=== PATIENT | female | born 1955 | race Caucasian/White ===

== ENCOUNTER 2023-02-12 16:13 | Inpatient (IN) ==
[2023-02-12] MEDS ORDERED: Albuterol/Ipratropium NEB.SOL (2.5/0.5 MG) 3 ML NEB.SOLN INH ONE (20:11)
[2023-02-12] MEDS ORDERED: Albuterol 2.5mg/3 ml (0.083%) NEB.SOLN INH PRN (20:20)
[2023-02-12] MEDS ORDERED: Furosemide 40 mg/4 ml IV VIAL IV SLOW PU ONE (20:24)
[2023-02-12] MEDS ORDERED: Azelastine 0.1% Nasal (NF) 30 ML BTL BOTH NARES PRN (21:15)
[2023-02-12 21:57] LABS: ABS Lymphocytes 0.2 10^3/uL (1.0-4.8); ABS Monocytes 0.1 10^3/uL (0.0-0.9); ABS Neutrophils 5.1 10^3/uL (1.5-7.6); Hematocrit 31.1 % (35-45); Lymphocyte % 3.7 %; Mean Corpuscular Hemoglobin 26.5 pg (27-33); Mean Corpuscular Hgb Conc 32.1 g/dL (31-36); Mean Corpuscular Volume 82.6 fL (80-97); Mean Platelet Volume 8.2 fL (7.5-11.2); Nucleated Red Blood Cells % 0.1 /100 WBC (0.0-0.4); Platelet Count 253 10^3/uL (150-450); Red Blood Count 3.77 10^6/uL (3.63-4.92); Red Cell Distribution Width 15.4 % (12-17); White Blood Count 5.4 10^3/uL (3.8-11.8)
[2023-02-12] MEDS ORDERED: cefTRIAXone 1 gm/50 mL D5W 1 GM/50 ML BAG IV SCH (22:15)
[2023-02-12 22:23] LABS: Albumin 4.1 g/dL (3.2-5.2); Albumin/Globulin Ratio 1.5 (1-3); Calcium 9.8 mg/dL (8.6-10.3); Creatinine, Serum 1.58 mg/dL (0.51-0.95); Globulin 2.8 g/dL (2-4); Potassium 4.4 mmol/L (3.5-5.0); Total Bilirubin 0.4 mg/dL (0.2-1.0); Total Protein 6.9 g/dL (6.4-8.9); eGFR CKD-EPI 35.2 (>60)
[2023-02-12] MEDS ORDERED: LORazepam 2 mg VIAL 1 ml ONE (22:37)
[2023-02-12] MEDS ORDERED: Lorazepam PYXIS KEY ONE (22:37)
[2023-02-12] MEDS ORDERED: Lorazepam PYXIS KEY PRN (22:38)
[2023-02-12] MEDS ORDERED: LORazepam 2 mg VIAL 1 ml IV PUSH ONE (22:38)
[2023-02-12] MEDS: Albuterol/Ipratropium NEB.SOL (2.5/0.5 MG) 3 ML NEB.SOLN INH SCH (22:48)
[2023-02-12] MEDS ORDERED: Azithromycin 500 mg/250 ml NS 500 MG/250 ML BAG IVPB SCH (23:00)
[2023-02-12 23:21] LABS: High Sensitivity Troponin 1 Hr 203 pg/mL (<15)
[2023-02-12] MEDS ORDERED: Potassium Chlor 20 meq TAB.ER PO ONE (23:50)
[2023-02-13] MEDS: methylPREDNISolone SOD SUCC 40 mg/ml 1 ml VIAL IV SCH ×4 (00:42→21:32)
[2023-02-13] MEDS: Pantoprazole VIAL 40 MG VIAL IV SCH ×2 (00:49→08:56)
[2023-02-13] MEDS ORDERED: Iodixanol (CONTRAST) 320 MG/ML 100 ML SDV IV ONE (02:11)
[2023-02-13 04:14] LABS: ABS Lymphocytes 0.3 10^3/uL (1.0-4.8); ABS Monocytes 0.1 10^3/uL (0.0-0.9); ABS Neutrophils 5.4 10^3/uL (1.5-7.6); Hematocrit 29.2 % (35-45); Hemoglobin 9.4 g/dL (11.5-14.3); Lymphocyte % 4.4 %; Mean Corpuscular Hemoglobin 26.7 pg (27-33); Mean Corpuscular Hgb Conc 32.4 g/dL (31-36); Mean Corpuscular Volume 82.7 fL (80-97); Mean Platelet Volume 7.9 fL (7.5-11.2); Nucleated Red Blood Cells % 0.1 /100 WBC (0.0-0.4); Platelet Count 231 10^3/uL (150-450); Red Blood Count 3.53 10^6/uL (3.63-4.92); Red Cell Distribution Width 15.4 % (12-17); White Blood Count 5.7 10^3/uL (3.8-11.8)
[2023-02-13 04:35] LABS: High Sensitivity Troponin 3 Hr 210 pg/mL (<15)
[2023-02-13 04:46] LABS: Calcium 9.5 mg/dL (8.6-10.3); Creatinine, Serum 1.72 mg/dL (0.51-0.95); Potassium 4.4 mmol/L (3.5-5.0); eGFR CKD-EPI 31.8 (>60)
[2023-02-13] MEDS: Mometasone/Formoter 200/5 MDI INH SCH ×2 (08:23→19:29)
[2023-02-13] MEDS: Albuterol/Ipratropium NEB.SOL (2.5/0.5 MG) 3 ML NEB.SOLN INH SCH ×3 (08:23→19:29)
[2023-02-13] MEDS: Aspirin EC 81 mg TAB.EC (enteric coated) PO SCH (08:53)
[2023-02-13] MEDS: Nystatin TOP POWDER 15 GM BTL TOPICAL SCH ×2 (08:55→21:32)
[2023-02-13] MEDS ORDERED: Furosemide 40 mg/4 ml IV VIAL IV SLOW PU SCH (09:00)
[2023-02-13] MEDS ORDERED: cefTRIAXone 1 gm/50 mL D5W 1 GM/50 ML BAG IV SCH (09:00)
[2023-02-13 09:28] LABS: Ferritin 30.4 ng/mL (11-307)
[2023-02-13] MEDS ORDERED: Albuterol/Ipratropium NEB.SOL (2.5/0.5 MG) 3 ML NEB.SOLN INH PRN (11:56)
[2023-02-13] MEDS: cefTRIAXone 1 gm/50 mL D5W 1 GM/50 ML BAG IV SCH (12:37)
[2023-02-13] MEDS: Azithromycin 500 mg/250 ml NS 500 MG/250 ML BAG IVPB SCH ×2 (14:01→16:06)
[2023-02-13] MEDS ORDERED: Lidocaine 1% MPF 5 ML VIAL INJ ONE (14:34)
[2023-02-14] MEDS: Albuterol/Ipratropium NEB.SOL (2.5/0.5 MG) 3 ML NEB.SOLN INH SCH ×4 (01:20→18:57)
[2023-02-14 04:54] LABS: ABS Lymphocytes 0.2 10^3/uL (1.0-4.8); ABS Monocytes 0.2 10^3/uL (0.0-0.9); ABS Neutrophils 7.6 10^3/uL (1.5-7.6); ABS Nucleated RBC 0.01 10^3/ul; Hematocrit 26.4 % (35-45); Hemoglobin 8.5 g/dL (11.5-14.3); Lymphocyte % 2.8 %; Mean Corpuscular Hemoglobin 26.7 pg (27-33); Mean Corpuscular Hgb Conc 32.2 g/dL (31-36); Mean Corpuscular Volume 83.1 fL (80-97); Mean Platelet Volume 7.8 fL (7.5-11.2); Nucleated Red Blood Cells % 0.1 /100 WBC (0.0-0.4); Platelet Count 224 10^3/uL (150-450); Red Blood Count 3.18 10^6/uL (3.63-4.92); Red Cell Distribution Width 15.6 % (12-17)
[2023-02-14 05:19] LABS: Calcium 9.3 mg/dL (8.6-10.3); Creatinine, Serum 1.94 mg/dL (0.51-0.95); Magnesium 2.1 mg/dL (1.9-2.7); Potassium 4.2 mmol/L (3.5-5.0); eGFR CKD-EPI 27.5 (>60)
[2023-02-14] MEDS: methylPREDNISolone SOD SUCC 40 mg/ml 1 ml VIAL IV SCH ×3 (05:39→20:23)
[2023-02-14] MEDS: Saline FLUSH-CENTRAL 10 ML SYRINGE CENT\\PICC SCH ×2 (05:45→18:08)
[2023-02-14] MEDS: Mometasone/Formoter 200/5 MDI INH SCH ×2 (07:41→18:57)
[2023-02-14] MEDS ORDERED: Albuterol/Ipratropium NEB.SOL (2.5/0.5 MG) 3 ML NEB.SOLN INH PRN (08:35)
[2023-02-14] MEDS ORDERED: Albuterol 2.5mg/3 ml (0.083%) NEB.SOLN INH ONE (08:37)
[2023-02-14] MEDS: Aspirin EC 81 mg TAB.EC (enteric coated) PO SCH (08:48)
[2023-02-14] MEDS: Pantoprazole VIAL 40 MG VIAL IV SCH (08:49)
[2023-02-14] MEDS ORDERED: Furosemide 40 mg/4 ml IV VIAL IV ONE (10:00)
[2023-02-14] MEDS ORDERED: LORazepam 2 mg VIAL 1 ml IV PUSH PRN (10:06)
[2023-02-14] MEDS: Nystatin TOP POWDER 15 GM BTL TOPICAL SCH ×2 (11:29→20:22)
[2023-02-14] MEDS: cefTRIAXone 1 gm/50 mL D5W 1 GM/50 ML BAG IV SCH ×2 (11:38→12:52)
[2023-02-14] MEDS: Ferric Gluconate IV 125 MG in NS 0.9% 100 ml BAG 100 ML IVPB SCH (11:38)
[2023-02-14] MEDS: Azithromycin 500 mg/250 ml NS 500 MG/250 ML BAG IVPB SCH (13:31)
[2023-02-14 15:32] LABS: TSH Ultra Thyroid Stim Horm 2.04 mcIU/mL (0.34-5.60)
[2023-02-14 15:37] LABS: Free T4 0.96 ng/dL (0.61-1.12)
[2023-02-14] MEDS: Fluticasone NASAL SPRAY 50MCG 16 gm SPRAY BTL BOTH NARES SCH (18:08)
[2023-02-15] MEDS: Albuterol/Ipratropium NEB.SOL (2.5/0.5 MG) 3 ML NEB.SOLN INH SCH ×4 (00:57→19:04)
[2023-02-15 05:25] LABS: ABS Lymphocytes 0.2 10^3/uL (1.0-4.8); ABS Monocytes 0.2 10^3/uL (0.0-0.9); ABS Neutrophils 8.3 10^3/uL (1.5-7.6); ABS Nucleated RBC 0.01 10^3/ul; Hematocrit 26.2 % (35-45); Hemoglobin 8.6 g/dL (11.5-14.3); Lymphocyte % 2.8 %; Mean Corpuscular Hemoglobin 27.3 pg (27-33); Mean Corpuscular Hgb Conc 32.9 g/dL (31-36); Mean Corpuscular Volume 82.9 fL (80-97); Mean Platelet Volume 8.2 fL (7.5-11.2); Nucleated Red Blood Cells % 0.1 /100 WBC (0.0-0.4); Platelet Count 223 10^3/uL (150-450); Red Blood Count 3.16 10^6/uL (3.63-4.92); Red Cell Distribution Width 15.3 % (12-17); White Blood Count 8.7 10^3/uL (3.8-11.8)
[2023-02-15 05:50] LABS: Calcium 9.2 mg/dL (8.6-10.3); Creatinine, Serum 2.29 mg/dL (0.51-0.95); Magnesium 2.2 mg/dL (1.9-2.7); Potassium 4.4 mmol/L (3.5-5.0); eGFR CKD-EPI 22.6 (>60)
[2023-02-15] MEDS: methylPREDNISolone SOD SUCC 40 mg/ml 1 ml VIAL IV SCH ×3 (05:51→22:01)
[2023-02-15] MEDS: Saline FLUSH-CENTRAL 10 ML SYRINGE CENT\\PICC SCH ×2 (05:54→20:34)
[2023-02-15] MEDS: Mometasone/Formoter 200/5 MDI INH SCH ×2 (07:57→19:03)
[2023-02-15] MEDS: Ferric Gluconate IV 125 MG in NS 0.9% 100 ml BAG 100 ML IVPB SCH (10:58)
[2023-02-15] MEDS: Pantoprazole VIAL 40 MG VIAL IV SCH (11:04)
[2023-02-15] MEDS: Nystatin TOP POWDER 15 GM BTL TOPICAL SCH ×2 (11:05→20:35)
[2023-02-15] MEDS: Aspirin EC 81 mg TAB.EC (enteric coated) PO SCH (11:05)
[2023-02-15] MEDS: Fluticasone NASAL SPRAY 50MCG 16 gm SPRAY BTL BOTH NARES SCH (11:09)
[2023-02-15] MEDS: cefTRIAXone 1 gm/50 mL D5W 1 GM/50 ML BAG IV SCH (12:30)
[2023-02-15 13:10] LABS: Urine Appearance Cloudy; Urine Bilirubin Negative (Negative); Urine Blood 3+ (Negative); Urine Color Yellow; Urine Glucose Negative (Negative); Urine Ketones Negative (Negative); Urine Nitrite Negative (Negative); Urine Protein 1+(30 mg/dL) (Negative); Urine Specific Gravity 1.018 (1.002-1.030); Urine Urobilinogen Negative (Negative)
[2023-02-15 13:18] LABS: Urine Bacteria Absent (Absent); Urine Red Blood Cell 3+(>10/hpf) (Absent); Urine Squamous Epithelial Cell Present (Absent); Urine White Blood Cell 1+(6-10/hpf) (Absent)
[2023-02-15] MEDS: Azithromycin 500 mg/250 ml NS 500 MG/250 ML BAG IVPB SCH (13:52)
[2023-02-15 15:55] LABS: Urine Osmo 576 mOsm/kg (150-1150)
[2023-02-15 16:04] LABS: UR Microalbumin (mg/L) 56.3 mg/L; Urine Creatinine 124.79 mg/dL; Urine Microalbumin/Creatinine 45.1 mcg/mg (<31)
[2023-02-16] MEDS: Albuterol/Ipratropium NEB.SOL (2.5/0.5 MG) 3 ML NEB.SOLN INH SCH ×4 (00:52→19:36)
[2023-02-16] MEDS: methylPREDNISolone SOD SUCC 40 mg/ml 1 ml VIAL IV SCH ×3 (05:26→20:09)
[2023-02-16] MEDS: Saline FLUSH-CENTRAL 10 ML SYRINGE CENT\\PICC SCH ×2 (05:42→16:04)
[2023-02-16 05:50] LABS: ABS Lymphocytes 0.2 10^3/uL (1.0-4.8); ABS Monocytes 0.2 10^3/uL (0.0-0.9); ABS Neutrophils 7.8 10^3/uL (1.5-7.6); ABS Nucleated RBC 0.01 10^3/ul; Eosinophil % 0.1 %; Hemoglobin 8.8 g/dL (11.5-14.3); Lymphocyte % 2.6 %; Mean Corpuscular Hemoglobin 27.3 pg (27-33); Mean Corpuscular Hgb Conc 32.4 g/dL (31-36); Mean Platelet Volume 8.5 fL (7.5-11.2); Nucleated Red Blood Cells % 0.1 /100 WBC (0.0-0.4); Platelet Count 214 10^3/uL (150-450); Red Blood Count 3.22 10^6/uL (3.63-4.92); Red Cell Distribution Width 15.4 % (12-17); White Blood Count 8.3 10^3/uL (3.8-11.8)
[2023-02-16 06:30] LABS: Calcium 8.9 mg/dL (8.6-10.3); Creatinine, Serum 1.86 mg/dL (0.51-0.95); Magnesium 2.2 mg/dL (1.9-2.7)
[2023-02-16] MEDS: Mometasone/Formoter 200/5 MDI INH SCH ×2 (06:54→19:40)
[2023-02-16] MEDS: Ferric Gluconate IV 125 MG in NS 0.9% 100 ml BAG 100 ML IVPB SCH (09:20)
[2023-02-16] MEDS: Aspirin EC 81 mg TAB.EC (enteric coated) PO SCH (09:21)
[2023-02-16] MEDS: Fluticasone NASAL SPRAY 50MCG 16 gm SPRAY BTL BOTH NARES SCH (09:24)
[2023-02-16] MEDS: Nystatin TOP POWDER 15 GM BTL TOPICAL SCH ×2 (09:24→20:09)
[2023-02-16] MEDS: cefTRIAXone 1 gm/50 mL D5W 1 GM/50 ML BAG IV SCH (11:50)
[2023-02-16] MEDS: Azithromycin 500 mg/250 ml NS 500 MG/250 ML BAG IVPB SCH (11:50)
[2023-02-17] MEDS: Albuterol/Ipratropium NEB.SOL (2.5/0.5 MG) 3 ML NEB.SOLN INH SCH ×4 (00:06→19:21)
[2023-02-17] MEDS: methylPREDNISolone SOD SUCC 40 mg/ml 1 ml VIAL IV SCH (05:24)
[2023-02-17] MEDS: Saline FLUSH-CENTRAL 10 ML SYRINGE CENT\\PICC SCH ×2 (05:24→17:46)
[2023-02-17 06:11] LABS: ABS Lymphocytes 0.3 10^3/uL (1.0-4.8); ABS Monocytes 0.2 10^3/uL (0.0-0.9); ABS Neutrophils 6.7 10^3/uL (1.5-7.6); Hemoglobin 9.6 g/dL (11.5-14.3); Lymphocyte % 4.5 %; Mean Corpuscular Volume 84.8 fL (80-97); Mean Platelet Volume 8.6 fL (7.5-11.2); Platelet Count 224 10^3/uL (150-450); Red Blood Count 3.41 10^6/uL (3.63-4.92); Red Cell Distribution Width 15.3 % (12-17); White Blood Count 7.2 10^3/uL (3.8-11.8)
[2023-02-17 06:29] LABS: Calcium 9.1 mg/dL (8.6-10.3); Creatinine, Serum 1.68 mg/dL (0.51-0.95); Magnesium 2.3 mg/dL (1.9-2.7); Potassium 4.8 mmol/L (3.5-5.0); eGFR CKD-EPI 32.7 (>60)
[2023-02-17] MEDS: Mometasone/Formoter 200/5 MDI INH SCH ×2 (07:00→19:24)
[2023-02-17] MEDS: Ferric Gluconate IV 125 MG in NS 0.9% 100 ml BAG 100 ML IVPB SCH (10:27)
[2023-02-17] MEDS: Aspirin EC 81 mg TAB.EC (enteric coated) PO SCH (10:27)
[2023-02-17] MEDS: Fluticasone NASAL SPRAY 50MCG 16 gm SPRAY BTL BOTH NARES SCH (12:33)
[2023-02-17] MEDS: Nystatin TOP POWDER 15 GM BTL TOPICAL SCH ×2 (17:46→20:45)
[2023-02-18] MEDS: Albuterol/Ipratropium NEB.SOL (2.5/0.5 MG) 3 ML NEB.SOLN INH SCH ×4 (01:18→18:26)
[2023-02-18 05:29] LABS: Calcium 8.7 mg/dL (8.6-10.3); Creatinine, Serum 1.6 mg/dL (0.51-0.95); Magnesium 2.3 mg/dL (1.9-2.7); Potassium 4.3 mmol/L (3.5-5.0); eGFR CKD-EPI 34.7 (>60)
[2023-02-18] MEDS: Saline FLUSH-CENTRAL 10 ML SYRINGE CENT\\PICC SCH ×2 (05:29→18:22)
[2023-02-18] MEDS: Mometasone/Formoter 200/5 MDI INH SCH ×2 (07:03→18:20)
[2023-02-18] MEDS: Aspirin EC 81 mg TAB.EC (enteric coated) PO SCH (10:25)
[2023-02-18] MEDS: Ferric Gluconate IV 125 MG in NS 0.9% 100 ml BAG 100 ML IVPB SCH (10:26)
[2023-02-18] MEDS: Fluticasone NASAL SPRAY 50MCG 16 gm SPRAY BTL BOTH NARES SCH (10:41)
[2023-02-18] MEDS: Nystatin TOP POWDER 15 GM BTL TOPICAL SCH ×2 (10:42→20:42)
[2023-02-19] MEDS: Albuterol/Ipratropium NEB.SOL (2.5/0.5 MG) 3 ML NEB.SOLN INH SCH ×4 (00:13→20:18)
[2023-02-19] MEDS: Saline FLUSH-CENTRAL 10 ML SYRINGE CENT\\PICC SCH ×2 (06:15→17:59)
[2023-02-19] MEDS: Mometasone/Formoter 200/5 MDI INH SCH ×2 (07:27→20:18)
[2023-02-19] MEDS: Nystatin TOP POWDER 15 GM BTL TOPICAL SCH ×2 (07:49→20:55)
[2023-02-19] MEDS: Aspirin EC 81 mg TAB.EC (enteric coated) PO SCH (07:50)
[2023-02-19] MEDS: Fluticasone NASAL SPRAY 50MCG 16 gm SPRAY BTL BOTH NARES SCH (07:51)
[2023-02-19] MEDS: Ferric Gluconate IV 125 MG in NS 0.9% 100 ml BAG 100 ML IVPB SCH (08:06)
[2023-02-20] MEDS: Saline FLUSH-CENTRAL 10 ML SYRINGE CENT\\PICC SCH ×2 (05:27→18:26)
[2023-02-20] MEDS: Mometasone/Formoter 200/5 MDI INH SCH ×2 (06:52→19:12)
[2023-02-20] MEDS: Albuterol/Ipratropium NEB.SOL (2.5/0.5 MG) 3 ML NEB.SOLN INH SCH ×3 (06:52→19:11)
[2023-02-20] MEDS: Aspirin EC 81 mg TAB.EC (enteric coated) PO SCH (08:51)
[2023-02-20] MEDS: Fluticasone NASAL SPRAY 50MCG 16 gm SPRAY BTL BOTH NARES SCH (08:53)
[2023-02-20] MEDS: Ferric Gluconate IV 125 MG in NS 0.9% 100 ml BAG 100 ML IVPB SCH (08:57)
[2023-02-20] MEDS: Nystatin TOP POWDER 15 GM BTL TOPICAL SCH ×2 (09:00→19:57)
[2023-02-21] MEDS: Saline FLUSH-CENTRAL 10 ML SYRINGE CENT\\PICC SCH ×2 (05:51→17:09)
[2023-02-21] MEDS: Mometasone/Formoter 200/5 MDI INH SCH ×2 (07:08→19:10)
[2023-02-21] MEDS: Albuterol/Ipratropium NEB.SOL (2.5/0.5 MG) 3 ML NEB.SOLN INH SCH ×3 (07:08→19:09)
[2023-02-21] MEDS: Fluticasone NASAL SPRAY 50MCG 16 gm SPRAY BTL BOTH NARES SCH (09:37)
[2023-02-21] MEDS: Aspirin EC 81 mg TAB.EC (enteric coated) PO SCH (09:47)
[2023-02-21] MEDS: Nystatin TOP POWDER 15 GM BTL TOPICAL SCH ×2 (09:52→20:30)
[2023-02-21] MEDS: Ferric Gluconate IV 125 MG in NS 0.9% 100 ml BAG 100 ML IVPB SCH (09:52)
[2023-02-21 17:33] LABS: Rapid COVID-19 Molecular Undetected (Undetected)
[2023-02-22] MEDS: Saline FLUSH-CENTRAL 10 ML SYRINGE CENT\\PICC SCH (05:45)
[2023-02-22 06:11] VITALS: BP 149/57
[2023-02-22] MEDS: Mometasone/Formoter 200/5 MDI INH SCH (08:06)
[2023-02-22] MEDS: Albuterol/Ipratropium NEB.SOL (2.5/0.5 MG) 3 ML NEB.SOLN INH SCH ×2 (08:07→13:43)
[2023-02-22] MEDS: Nystatin TOP POWDER 15 GM BTL TOPICAL SCH (10:09)
[2023-02-22] MEDS: Aspirin EC 81 mg TAB.EC (enteric coated) PO SCH (10:09)
[2023-02-22] MEDS: Fluticasone NASAL SPRAY 50MCG 16 gm SPRAY BTL BOTH NARES SCH (10:10)
== END 2023-02-22 13:00 | disposition home or self-care (01) | DRG 189 ==
LOC: ED 16:13 → SUATTDRO 20:44 → EDHOLD 20:44 → ICU 21:55 → MEDTELE 02-16 14:09
PROVIDERS: ADMIT Internal Medicine; ATTEND Student in an Organized Health Care Education/Training Program

== ENCOUNTER 2023-12-31 20:04 | Inpatient (IN) ==
[2023-12-31] MEDS ORDERED: Senna TAB 8.6 mg TAB PO PRN (21:18)
[2023-12-31] MEDS ORDERED: Ondansetron 4 mg VIAL 2 MG/ML 2 ml VIAL IV PRN (21:18)
[2023-12-31] MEDS: Levalbuterol 1.25MG/0.5ML NEB.SOL INH ONE (21:42)
[2023-12-31 23:31] LABS: Urine Appearance Clear; Urine Bilirubin Negative (Negative); Urine Blood Negative (Negative); Urine Color Colorless; Urine Glucose Negative (Negative); Urine Ketones Negative (Negative); Urine Nitrite Negative (Negative); Urine Protein Negative (Negative); Urine Specific Gravity 1.007 (1.002-1.030); Urine Urobilinogen Negative (Negative)
[2024-01-01] MEDS: Furosemide 40 mg/4 ml IV VIAL IV SLOW PU ONE (00:48)
[2024-01-01 00:50] LABS: High Sensitivity Troponin 1 Hr 2647 pg/mL (<15)
[2024-01-01] MEDS ORDERED: Heparin 5000 UNITS/ML 1 mL VIAL IV SCH (01:00)
[2024-01-01] MEDS: Heparin DRIP 25,000 UNITS BAG 25,000 UNITS/250 ML BAG IV SCH (01:44)
[2024-01-01] MEDS ORDERED: Bivalirudin 250 MG in NS 0.9% 50 ML Total BAG IV SCH (01:55)
[2024-01-01] MEDS: Iodixanol (CONTRAST) 320 MG/ML 100 ML SDV IV ONE (02:33)
[2024-01-01] MEDS: Levalbuterol 1.25MG/0.5ML NEB.SOL INH PRN (03:25)
[2024-01-01] MEDS: Bivalirudin 250 MG in NS 0.9% 50 ML Total BAG IV SCH (03:50)
[2024-01-01 03:55] LABS: Activated Partial Thrombo Time 32.3 seconds (26.0-38.0); INR 0.94 (0.83-1.13)
[2024-01-01 03:58] LABS: ABS Basophils 0.1 10^3/uL (0.0-0.1); ABS Eosinophils 0.3 10^3/uL (0.0-0.5); ABS Lymphocytes 0.8 10^3/uL (1.0-4.8); ABS Monocytes 0.6 10^3/uL (0.0-0.9); ABS Neutrophils 5.9 10^3/uL (1.5-7.6); ABS Nucleated RBC 0.01 10^3/ul; Eosinophil % 3.8 %; Hematocrit 33.8 % (35-45); Hemoglobin 11.5 g/dL (11.5-14.3); Lymphocyte % 10.8 %; Mean Corpuscular Hemoglobin 30.2 pg (27-33); Mean Corpuscular Hgb Conc 34.1 g/dL (31-36); Mean Corpuscular Volume 88.7 fL (80-97); Mean Platelet Volume 8.5 fL (7.5-11.2); Nucleated Red Blood Cells % 0.1 %/100WBC (0.0-0.8); Platelet Count 230 10^3/uL (150-450); Red Blood Count 3.81 10^6/uL (3.63-4.92); Red Cell Distribution Width 13.3 % (12-17); White Blood Count 7.7 10^3/uL (3.8-11.8)
[2024-01-01 05:15] LABS: Albumin 4.3 g/dL (3.2-5.2); Albumin/Globulin Ratio 1.5 (1-3); Calcium 9.6 mg/dL (8.6-10.3); Creatinine, Serum 2.18 mg/dL (0.51-0.95); Globulin 2.8 g/dL (2-4); Magnesium 1.8 mg/dL (1.9-2.7); Potassium 4.1 mmol/L (3.5-5.0); Total Bilirubin 0.5 mg/dL (0.2-1.0); Total Protein 7.1 g/dL (6.4-8.9); eGFR CKD-EPI 23.9 (>60)
[2024-01-01] MEDS: Magnesium Sulfate 2 gm BAG 2 GM/50 ML BAG IVPB ONE (07:57)
[2024-01-01] MEDS ORDERED: Sulfur Hexaflouride MICROSPHR 25 MG VIAL ONE (08:44)
[2024-01-01] MEDS: Cholecalciferol (VIT D3) 1,000 unit TAB PO SCH (09:36)
[2024-01-01] MEDS: NF: (Azelastine 137 mcg (0.1 %) Aerosol,Spray) INTRANASAL SCH (09:48)
[2024-01-01] MEDS: NF: BUDESONIDE/GLYCOPYR/FORMOTEROL MDI (NF) INH SCH (09:48)
[2024-01-01] MEDS: VARENICLINE 1 MG PO SCH (09:49)
[2024-01-01 10:13] LABS: Activated Partial Thrombo Time 84.8 seconds (26.0-38.0); INR 1.43 (0.83-1.13)
[2024-01-01 11:00] LABS: High Sensitivity Troponin 3 Hr 3112 pg/mL (<15)
[2024-01-01] MEDS ORDERED: Albuterol HFA INHALER 8 gm MDI INH PRN (13:22)
[2024-01-01 13:30] LABS: Activated Partial Thrombo Time 57.2 seconds (26.0-38.0); INR 1.35 (0.83-1.13)
[2024-01-01] MEDS: SPIRIVA Respimat (tiotropium) 2.5 mcg/inh Inhaler INH SCH (13:36)
[2024-01-01] MEDS: Mometasone/Formoter 200/5 MDI INH SCH (13:36)
[2024-01-01] MEDS ORDERED: Albuterol/Ipratropium NEB.SOL (2.5/0.5 MG) 3 ML NEB.SOLN INH SCH ×2 (14:00→15:00)
[2024-01-01] MEDS: Albuterol 2.5mg/3 ml (0.083%) NEB.SOLN INH PRN (14:02)
[2024-01-01] MEDS: Albuterol 2.5mg/3 ml (0.083%) NEB.SOLN INH ONE (14:02)
[2024-01-01 14:49] LABS: High Sensitivity Troponin 1 Hr 1938 pg/mL (<15)
[2024-01-01 15:03] LABS: HDL Cholesterol 71.6 mg/dL
[2024-01-01] MEDS: Calcium (OSCAL) 500 mg TAB PO SCH (15:58)
[2024-01-01] MEDS: COVID VAC 23-24(12+)(Moderna) SYR 0.5 ML IM ONE (16:01)
[2024-01-01 16:30] LABS: Activated Partial Thrombo Time 82.8 seconds (26.0-38.0); INR 1.38 (0.83-1.13)
[2024-01-01] MEDS: Albuterol 2.5mg/3 ml (0.083%) NEB.SOLN INH SCH (19:03)
[2024-01-02 05:45] LABS: Activated Partial Thrombo Time 77.8 seconds (26.0-38.0); INR 1.39 (0.83-1.13)
[2024-01-02 05:56] LABS: Calcium 9.4 mg/dL (8.6-10.3); Creatinine, Serum 1.94 mg/dL (0.51-0.95); Magnesium 2.5 mg/dL (1.9-2.7); Potassium 4.1 mmol/L (3.5-5.0); eGFR CKD-EPI 27.5 (>60)
[2024-01-02 06:01] LABS: ABS Basophils 0.1 10^3/uL (0.0-0.1); ABS Eosinophils 0.3 10^3/uL (0.0-0.5); ABS Lymphocytes 0.9 10^3/uL (1.0-4.8); ABS Monocytes 0.4 10^3/uL (0.0-0.9); ABS Neutrophils 3.7 10^3/uL (1.5-7.6); Eosinophil % 5.3 %; Hematocrit 31.6 % (35-45); Hemoglobin 10.5 g/dL (11.5-14.3); Lymphocyte % 16.6 %; Mean Corpuscular Hemoglobin 29.7 pg (27-33); Mean Corpuscular Hgb Conc 33.2 g/dL (31-36); Mean Corpuscular Volume 89.4 fL (80-97); Mean Platelet Volume 8.9 fL (7.5-11.2); Nucleated Red Blood Cells % 0.1 %/100WBC (0.0-0.8); Platelet Count 175 10^3/uL (150-450); Red Blood Count 3.53 10^6/uL (3.63-4.92); White Blood Count 5.4 10^3/uL (3.8-11.8)
[2024-01-02] MEDS: NS 0.9% 1000 ml BAG 1,000 ML IV SCH ×2 (06:23→23:40)
[2024-01-02] MEDS: Midazolam 10 mg/10 ml VIAL 1 mg/ml 10 ml VIAL (10 mg) IV SLOW PU ONE (19:22)
[2024-01-02] MEDS: fentaNYL 100 mcg/2 ml 50 MCG/ML VIAL IV SLOW PU ONE (19:22)
[2024-01-03 05:22] LABS: ABS Eosinophils 0.2 10^3/uL (0.0-0.5); ABS Lymphocytes 0.5 10^3/uL (1.0-4.8); ABS Monocytes 0.3 10^3/uL (0.0-0.9); ABS Neutrophils 2.6 10^3/uL (1.5-7.6); Eosinophil % 4.6 %; Hematocrit 27.1 % (35-45); Hemoglobin 9.2 g/dL (11.5-14.3); Lymphocyte % 13.7 %; Mean Corpuscular Hemoglobin 30.2 pg (27-33); Mean Corpuscular Volume 88.7 fL (80-97); Mean Platelet Volume 8.5 fL (7.5-11.2); Platelet Count 152 10^3/uL (150-450); Red Blood Count 3.06 10^6/uL (3.63-4.92); Red Cell Distribution Width 13.2 % (12-17); White Blood Count 3.7 10^3/uL (3.8-11.8)
[2024-01-03 05:56] LABS: Calcium 8.6 mg/dL (8.6-10.3); Creatinine, Serum 2.06 mg/dL (0.51-0.95); Magnesium 2.3 mg/dL (1.9-2.7); Potassium 4.1 mmol/L (3.5-5.0); eGFR CKD-EPI 25.6 (>60)
[2024-01-03 10:22] LABS: Ferritin 82.8 ng/mL (11-307)
[2024-01-03] MEDS: Iron Sucrose 200 MG in NS 0.9% 100 ml BAG 100 ML IVPB SCH (12:19)
[2024-01-03] MEDS: Fluticasone NASAL SPRAY 50MCG 16 gm SPRAY BTL BOTH NARES SCH (18:14)
[2024-01-04 05:36] LABS: ABS Lymphocytes 0.3 10^3/uL (1.0-4.8); ABS Monocytes 0.2 10^3/uL (0.0-0.9); ABS Neutrophils 3.7 10^3/uL (1.5-7.6); Eosinophil % 0.1 %; Hematocrit 29.2 % (35-45); Hemoglobin 9.8 g/dL (11.5-14.3); Lymphocyte % 7.5 %; Mean Corpuscular Hgb Conc 33.5 g/dL (31-36); Mean Corpuscular Volume 89.4 fL (80-97); Mean Platelet Volume 9.1 fL (7.5-11.2); Platelet Count 164 10^3/uL (150-450); Red Blood Count 3.27 10^6/uL (3.63-4.92); Red Cell Distribution Width 13.4 % (12-17); White Blood Count 4.3 10^3/uL (3.8-11.8)
[2024-01-04 06:21] LABS: Calcium 8.9 mg/dL (8.6-10.3); Creatinine, Serum 1.77 mg/dL (0.51-0.95); Magnesium 2.4 mg/dL (1.9-2.7); Potassium 4.3 mmol/L (3.5-5.0); eGFR CKD-EPI 30.7 (>60)
[2024-01-04] MEDS: Polyethylene Glycol 3350 17 GM PACKET PO PRN (14:53)
[2024-01-05 05:27] LABS: ABS Lymphocytes 0.5 10^3/uL (1.0-4.8); ABS Monocytes 0.3 10^3/uL (0.0-0.9); ABS Nucleated RBC 0.01 10^3/ul; Hematocrit 29.2 % (35-45); Hemoglobin 9.8 g/dL (11.5-14.3); Lymphocyte % 8.8 %; Mean Corpuscular Hemoglobin 29.9 pg (27-33); Mean Corpuscular Hgb Conc 33.4 g/dL (31-36); Mean Corpuscular Volume 89.3 fL (80-97); Mean Platelet Volume 9.2 fL (7.5-11.2); Nucleated Red Blood Cells % 0.2 %/100WBC (0.0-0.8); Platelet Count 182 10^3/uL (150-450); Red Blood Count 3.27 10^6/uL (3.63-4.92); Red Cell Distribution Width 13.3 % (12-17); White Blood Count 5.9 10^3/uL (3.8-11.8)
[2024-01-05 05:59] LABS: Creatinine, Serum 1.7 mg/dL (0.51-0.95); Magnesium 2.3 mg/dL (1.9-2.7); Potassium 4.5 mmol/L (3.5-5.0); eGFR CKD-EPI 32.3 (>60)
[2024-01-06 05:22] LABS: ABS Basophils 0.1 10^3/uL (0.0-0.1); ABS Lymphocytes 0.6 10^3/uL (1.0-4.8); ABS Monocytes 0.4 10^3/uL (0.0-0.9); ABS Neutrophils 5.2 10^3/uL (1.5-7.6); ABS Nucleated RBC 0.01 10^3/ul; Eosinophil % 0.1 %; Hematocrit 29.8 % (35-45); Hemoglobin 10.1 g/dL (11.5-14.3); Lymphocyte % 9.2 %; Mean Corpuscular Hemoglobin 30.3 pg (27-33); Mean Corpuscular Volume 89.2 fL (80-97); Mean Platelet Volume 9.2 fL (7.5-11.2); Nucleated Red Blood Cells % 0.2 %/100WBC (0.0-0.8); Platelet Count 197 10^3/uL (150-450); Red Blood Count 3.34 10^6/uL (3.63-4.92); Red Cell Distribution Width 13.4 % (12-17); White Blood Count 6.2 10^3/uL (3.8-11.8)
[2024-01-06 06:14] LABS: Creatinine, Serum 1.75 mg/dL (0.51-0.95); Magnesium 2.3 mg/dL (1.9-2.7); Potassium 4.3 mmol/L (3.5-5.0); eGFR CKD-EPI 31.2 (>60)
[2024-01-06] MEDS ORDERED: VERAPAMIL 2.5 MG/ML 2 ML VIAL ** 5 mg/2 ml ONE (11:27)
[2024-01-06] MEDS ORDERED: Iodixanol 320 (CONTRAST) 100 ML SDV ONE (11:28)
[2024-01-06] MEDS ORDERED: nitroGLYCERIN DRIP 25,000 MCG/250 ML BTL ONE (11:28)
[2024-01-06] MEDS ORDERED: Lidocaine 1% MPF 5 ML VIAL ONE (11:28)
[2024-01-06] MEDS ORDERED: Midazolam 5 mg/5 ml VIAL 1 mg/ml 5 ml VIAL (5 mg) ONE (11:31)
[2024-01-06] MEDS ORDERED: fentaNYL 100 mcg/2 ml 50 MCG/ML VIAL ONE (11:31)
[2024-01-06] MEDS: Midazolam 10 mg/10 ml VIAL 1 mg/ml 10 ml VIAL (10 mg) IV SLOW PU ONE (11:38)
[2024-01-06] MEDS: fentaNYL 100 mcg/2 ml 50 MCG/ML VIAL IV SLOW PU ONE (11:38)
[2024-01-06] MEDS ORDERED: Atropine 0.1 MG/ML 10 ml SYR (1 mg) ONE (11:49)
[2024-01-06] MEDS: NS 0.9% 1000 ml BAG 1,000 ML IV SCH (15:10)
[2024-01-06] MEDS: Albuterol 2.5mg/3 ml (0.083%) NEB.SOLN INH SCH (18:55)
[2024-01-07 04:56] LABS: Hematocrit 30.2 % (35-45); Hemoglobin 10.2 g/dL (11.5-14.3); Mean Corpuscular Hemoglobin 30.2 pg (27-33); Mean Corpuscular Hgb Conc 33.9 g/dL (31-36); Mean Corpuscular Volume 89.2 fL (80-97); Mean Platelet Volume 8.8 fL (7.5-11.2); Platelet Count 186 10^3/uL (150-450); Red Blood Count 3.39 10^6/uL (3.63-4.92); Red Cell Distribution Width 13.2 % (12-17); White Blood Count 5.9 10^3/uL (3.8-11.8)
[2024-01-07 05:11] LABS: Calcium 8.9 mg/dL (8.6-10.3); Creatinine, Serum 1.75 mg/dL (0.51-0.95); Magnesium 2.3 mg/dL (1.9-2.7); Potassium 4.3 mmol/L (3.5-5.0); eGFR CKD-EPI 31.2 (>60)
[2024-01-07] MEDS: Albuterol 2.5mg/3 ml (0.083%) NEB.SOLN INH SCH (20:54)
[2024-01-08 06:16] LABS: Calcium 8.6 mg/dL (8.6-10.3); Creatinine, Serum 1.64 mg/dL (0.51-0.95); eGFR CKD-EPI 33.7 (>60)
[2024-01-08] MEDS ORDERED: Albuterol 2.5mg/3 ml (0.083%) NEB.SOLN INH PRN (11:54)
[2024-01-08 13:36] VITALS: BP 143/54
== END 2024-01-08 15:20 | disposition home or self-care (01) | DRG 190 ==
LOC: EDHOLD 20:04 → ED 20:04 → SUATTDRO 21:18 → ICU 01-01 02:34 → SUATTDRO 01-01 13:21 → MEDTELE 01-07 15:59
PROVIDERS: ADMIT Internal Medicine; ATTEND Internal Medicine

== ENCOUNTER 2024-09-15 17:24 | Inpatient (IN) ==
[~2024-09-15 17:24] MED LIST: Midazolam 10 mg/10 ml VIAL 1 mg/ml 10 ml VIAL (10 mg) ONE
[2024-09-15] MEDS: Propofol 10 mg/ml 100 ML BTL 1,000 MG/100 ML BTL IV SCH (18:20)
[2024-09-15] MEDS ORDERED: Sulfur Hexaflouride MICROSPHR 25 MG VIAL IV PRN (18:30)
[2024-09-15] MEDS: Norepinephrine 4 MG/250mL D5W 4,000 MCG/250 ML BAG IV ONE (18:49)
[2024-09-15] MEDS: Propofol 10 mg/ml 100 ML BTL 1,000 MG/100 ML BTL ONE (18:49)
[2024-09-15 18:50] LABS: ABS Lymphocytes 0.3 10^3/uL (1.0-4.8); ABS Monocytes 0.3 10^3/uL (0.0-0.9); ABS Neutrophils 10.7 10^3/uL (1.5-7.6); ABS Nucleated RBC 0.01 10^3/ul; Hematocrit 35.4 % (35-45); Hemoglobin 11.6 g/dL (11.5-14.3); Lymphocyte % 2.9 %; Mean Corpuscular Hemoglobin 29.6 pg (27-33); Mean Corpuscular Hgb Conc 32.9 g/dL (31-36); Mean Corpuscular Volume 90.1 fL (80-97); Mean Platelet Volume 9.1 fL (7.5-11.2); Nucleated Red Blood Cells % 0.1 %/100WBC (0.0-0.8); Platelet Count 198 10^3/uL (150-450); Red Blood Count 3.93 10^6/uL (3.63-4.92); Red Cell Distribution Width 13.5 % (12-17); White Blood Count 11.3 10^3/uL (3.8-11.8)
[2024-09-15 18:51] LABS: INR 1.09 (0.85-1.14)
[2024-09-15 19:19] LABS: Anion Gap 10 mmol/L (2-16); Blood Urea Nitrogen 30 mg/dL (6-24); CO2 Carbon Dioxide 26 mmol/L (22-32); Calcium 8.3 mg/dL (8.6-10.3); Chloride 99 mmol/L (101-111); Creatinine, Serum 1.84 mg/dL (0.51-0.95); Glucose 92 mg/dL (70-100); Sodium 135 mmol/L (135-145); eGFR CKD-EPI 29.2 (>60)
[2024-09-15] MEDS: Norepinephrine 4 MG/250mL D5W 4,000 MCG/250 ML BAG IV SCH (19:26)
[2024-09-15 19:46] LABS: Urine Appearance Turbid; Urine Bilirubin Negative (Negative); Urine Blood 1+ (Negative); Urine Color Yellow; Urine Glucose 3+ (>=300 mg/dL) (Negative); Urine Ketones Trace (Negative); Urine Nitrite Negative (Negative); Urine Protein 1+ (>=30 mg/dL) (Negative); Urine Specific Gravity 1.022 (1.002-1.030); Urine Urobilinogen Negative (Negative)
[2024-09-15 19:49] LABS: Urine Bacteria Absent /HPF (Absent); Urine Granular Casts Present /LPF (Absent); Urine Red Blood Cell 2+(6-10/hpf) /HPF (0-Trace); Urine Squamous Epithelial Cell Present /HPF (Absent); Urine White Blood Cell 2+(11-20/hpf) /HPF (0-Trace)
[2024-09-15] MEDS ORDERED: Enoxaparin 40 MG/0.4 ML SYR SUBCUT SCH (21:00)
[2024-09-15] MEDS: Atropine 0.1 MG/ML 10 ml SYR (1 mg) IV PUSH ONE (22:49)
[2024-09-15] MEDS: Chlorhexidine MOUTHWASH 0.12% 15 ML UDC TOPICAL SCH (23:08)
[2024-09-15] MEDS: Hyaluronidase HUMAN 15 UNIT in Sodium Chloride 0.9% 0.9 ML INTRADERM ONE (23:20)
[2024-09-15] MEDS: Famotidine IV 10 MG/ML 2 ml VIAL (20 mg) IV SLOW PU SCH (23:20)
[2024-09-15] MEDS: Atropine 0.1 MG/ML 10 ml SYR (1 mg) ONE (23:21)
[2024-09-16] MEDS: fentaNYL 100 mcg/2 ml 50 MCG/ML VIAL IV SLOW PU PRN ×2 (02:39→17:52)
[2024-09-16] MEDS: Lidocaine 2% (CARDIAC or IV) 20 MG/ML 5 ML SYRINGE (100 MG) INJ ONE (02:48)
[2024-09-16 03:43] LABS: PCO2 Arterial 53 mmHg (35-45); PO2 Arterial 225 mmHg (80-100)
[2024-09-16 06:04] LABS: ABS Lymphocytes 0.6 10^3/uL (1.0-4.8); ABS Monocytes 0.4 10^3/uL (0.0-0.9); ABS Neutrophils 17.1 10^3/uL (1.5-7.6); ABS Nucleated RBC 0.01 10^3/ul; Hematocrit 38.8 % (35-45); Hemoglobin 12.8 g/dL (11.5-14.3); Lymphocyte % 3.4 %; Mean Corpuscular Hemoglobin 30.2 pg (27-33); Mean Corpuscular Hgb Conc 32.9 g/dL (31-36); Mean Corpuscular Volume 91.6 fL (80-97); Mean Platelet Volume 9.4 fL (7.5-11.2); Platelet Count 148 10^3/uL (150-450); Red Blood Count 4.23 10^6/uL (3.63-4.92); Red Cell Distribution Width 13.6 % (12-17); White Blood Count 18.2 10^3/uL (3.8-11.8)
[2024-09-16] MEDS: fentaNYL 100 mcg/2 ml 50 MCG/ML VIAL ONE (06:13)
[2024-09-16] MEDS: Lidocaine 2% (CARDIAC or IV) 20 MG/ML 5 ML SYRINGE (100 MG) ONE (06:13)
[2024-09-16 07:31] LABS: ALT 12 U/L (7-52); Albumin 3.8 g/dL (3.2-5.2); Albumin/Globulin Ratio 1.4 (1-3); Alkaline Phosphatase 99 U/L (35-149); Anion Gap 13 mmol/L (2-16); Blood Urea Nitrogen 39 mg/dL (6-24); CO2 Carbon Dioxide 24 mmol/L (22-32); Calcium 8.8 mg/dL (8.6-10.3); Chloride 97 mmol/L (101-111); Creatinine, Serum 2.11 mg/dL (0.51-0.95); Globulin 2.7 g/dL (2-4); Glucose 134 mg/dL (70-100); Magnesium 2.1 mg/dL (1.9-2.7); Sodium 134 mmol/L (135-145); Total Bilirubin 0.7 mg/dL (0.2-1.0); Total Protein 6.5 g/dL (6.4-8.9); eGFR CKD-EPI 24.7 (>60)
[2024-09-16] MEDS: Albuterol/Ipratropium NEB.SOL (2.5/0.5 MG) 3 ML NEB.SOLN ONE (11:45)
[2024-09-16 13:00] LABS: Phosphorus 4.7 mg/dL (2.5-5.0); Potassium Redraw 4.3 mmol/L (3.5-5.0)
[2024-09-16 13:09] LABS: TSH Ultra Thyroid Stim Horm 1.85 mcIU/mL (0.34-5.60)
[2024-09-16] MEDS: Lactated Ringers 1000 ml BAG 500 ML IV ONE ×2 (13:15→16:00)
[2024-09-16] MEDS: Azithromycin 500 mg/250 ml NS 500 MG/250 ML BAG IVPB SCH (15:40)
[2024-09-16] MEDS: cefTRIAXone 1 gm/50 mL D5W 1 GM/50 ML BAG IV SCH (17:01)
[2024-09-16] MEDS: Albuterol/Ipratropium NEB.SOL (2.5/0.5 MG) 3 ML NEB.SOLN INH PRN (23:09)
[2024-09-17 05:52] LABS: ABS Lymphocytes 0.3 10^3/uL (1.0-4.8); ABS Monocytes 0.4 10^3/uL (0.0-0.9); ABS Neutrophils 8.9 10^3/uL (1.5-7.6); ABS Nucleated RBC 0.01 10^3/ul; Hematocrit 30.5 % (35-45); Hemoglobin 10.5 g/dL (11.5-14.3); Lymphocyte % 3.4 %; Mean Corpuscular Hemoglobin 30.7 pg (27-33); Mean Corpuscular Hgb Conc 34.3 g/dL (31-36); Mean Corpuscular Volume 89.3 fL (80-97); Nucleated Red Blood Cells % 0.1 %/100WBC (0.0-0.8); Platelet Count 199 10^3/uL (150-450); Red Blood Count 3.42 10^6/uL (3.63-4.92); Red Cell Distribution Width 13.2 % (12-17); White Blood Count 9.7 10^3/uL (3.8-11.8)
[2024-09-17] MEDS: Levothyroxine 100 MCG/5 ML VIAL IV SCH (06:27)
[2024-09-17 06:43] LABS: Albumin 3.3 g/dL (3.2-5.2); Albumin/Globulin Ratio 1.4 (1-3); Calcium 7.9 mg/dL (8.6-10.3); Creatinine, Serum 2.78 mg/dL (0.51-0.95); Globulin 2.4 g/dL (2-4); Magnesium 2.1 mg/dL (1.9-2.7); Phosphorus 5.8 mg/dL (2.5-5.0); Potassium 4.5 mmol/L (3.5-5.0); Total Bilirubin 0.3 mg/dL (0.2-1.0); Total Protein 5.7 g/dL (6.4-8.9); eGFR CKD-EPI 17.8 (>60)
[2024-09-17] MEDS: Midazolam 5 mg/5 ml VIAL 1 mg/ml 5 ml VIAL (5 mg) IV SLOW PU ONE (10:00)
[2024-09-17] MEDS: Midazolam 5 mg/5 ml VIAL 1 mg/ml 5 ml VIAL (5 mg) ONE (10:00)
[2024-09-17] MEDS: Albuterol/Ipratropium NEB.SOL (2.5/0.5 MG) 3 ML NEB.SOLN INH SCH (10:06)
[2024-09-17] MEDS: methylPREDNISolone SOD SUCC 40 mg/ml 1 ml VIAL IV SCH (11:40)
[2024-09-17] MEDS: Nystatin TOP POWDER 15 GM BTL TOPICAL SCH (12:01)
[2024-09-17 12:26] LABS: Hematocrit 31.7 % (35-45); Hemoglobin 10.6 g/dL (11.5-14.3)
[2024-09-18 04:24] LABS: ABS Lymphocytes 0.2 10^3/uL (1.0-4.8); ABS Monocytes 0.1 10^3/uL (0.0-0.9); ABS Neutrophils 6.4 10^3/uL (1.5-7.6); Hematocrit 28.8 % (35-45); Hemoglobin 9.6 g/dL (11.5-14.3); Lymphocyte % 2.7 %; Mean Corpuscular Hemoglobin 29.9 pg (27-33); Mean Corpuscular Hgb Conc 33.4 g/dL (31-36); Mean Corpuscular Volume 89.5 fL (80-97); Mean Platelet Volume 9.3 fL (7.5-11.2); Platelet Count 191 10^3/uL (150-450); Red Blood Count 3.21 10^6/uL (3.63-4.92); Red Cell Distribution Width 13.1 % (12-17); White Blood Count 6.7 10^3/uL (3.8-11.8)
[2024-09-18 04:57] LABS: Albumin 3.1 g/dL (3.2-5.2); Albumin/Globulin Ratio 1.3 (1-3); Calcium 7.7 mg/dL (8.6-10.3); Creatinine, Serum 2.63 mg/dL (0.51-0.95); Globulin 2.3 g/dL (2-4); Magnesium 2.4 mg/dL (1.9-2.7); Phosphorus 4.7 mg/dL (2.5-5.0); Potassium 4.6 mmol/L (3.5-5.0); Total Bilirubin 0.2 mg/dL (0.2-1.0); Total Protein 5.4 g/dL (6.4-8.9)
[2024-09-18] MEDS: Albuterol 2.5mg/3 ml (0.083%) NEB.SOLN INH PRN (11:05)
[2024-09-18] MEDS: Albuterol/Ipratropium NEB.SOL (2.5/0.5 MG) 3 ML NEB.SOLN INH SCH (13:56)
[2024-09-19 05:14] LABS: ABS Lymphocytes 0.2 10^3/uL (1.0-4.8); ABS Monocytes 0.1 10^3/uL (0.0-0.9); ABS Neutrophils 4.4 10^3/uL (1.5-7.6); Hematocrit 30.6 % (35-45); Hemoglobin 10.3 g/dL (11.5-14.3); Lymphocyte % 4.1 %; Mean Corpuscular Hemoglobin 29.9 pg (27-33); Mean Corpuscular Hgb Conc 33.6 g/dL (31-36); Mean Platelet Volume 8.6 fL (7.5-11.2); Platelet Count 194 10^3/uL (150-450); Red Blood Count 3.44 10^6/uL (3.63-4.92); Red Cell Distribution Width 13.3 % (12-17); White Blood Count 4.7 10^3/uL (3.8-11.8)
[2024-09-19 05:49] LABS: Calcium 8.2 mg/dL (8.6-10.3); Creatinine, Serum 2.07 mg/dL (0.51-0.95); Potassium 4.8 mmol/L (3.5-5.0); eGFR CKD-EPI 25.3 (>60)
[2024-09-19 05:50] LABS: Magnesium 2.8 mg/dL (1.9-2.7)
[2024-09-19] MEDS: Albuterol/Ipratropium NEB.SOL (2.5/0.5 MG) 3 ML NEB.SOLN INH SCH ×2 (10:32→15:45)
[2024-09-19] MEDS ORDERED: Lorazepam PYXIS KEY PRN ×2 (14:31→17:38)
[2024-09-19] MEDS: LORazepam 2 mg VIAL 1 ml IV PUSH ONE (15:06)
[2024-09-20] MEDS: LORazepam 2 mg VIAL 1 ml IV PUSH PRN ×2 (00:12→16:31)
[2024-09-20 04:56] LABS: Hematocrit 31.2 % (35-45); Hemoglobin 10.7 g/dL (11.5-14.3); Mean Corpuscular Hemoglobin 30.8 pg (27-33); Mean Corpuscular Hgb Conc 34.3 g/dL (31-36); Mean Corpuscular Volume 89.8 fL (80-97); Mean Platelet Volume 8.6 fL (7.5-11.2); Platelet Count 189 10^3/uL (150-450); Red Blood Count 3.47 10^6/uL (3.63-4.92); Red Cell Distribution Width 13.1 % (12-17); White Blood Count 4.6 10^3/uL (3.8-11.8)
[2024-09-20 05:42] LABS: Calcium 8.8 mg/dL (8.6-10.3); Creatinine, Serum 1.75 mg/dL (0.51-0.95); Magnesium 2.9 mg/dL (1.9-2.7); Potassium 5.3 mmol/L (3.5-5.0)
[2024-09-20 05:56] LABS: ABS Lymphocytes 0.2 10^3/uL (1.0-4.8); ABS Monocytes 0.1 10^3/uL (0.0-0.9); ABS Neutrophils 4.3 10^3/uL (1.5-7.6); Lymphocyte % 4.4 %; Nucleated Red Blood Cells % 0.1 %/100WBC (0.0-0.8)
[2024-09-20] MEDS: Albuterol/Ipratropium NEB.SOL (2.5/0.5 MG) 3 ML NEB.SOLN INH SCH (06:58)
[2024-09-20] MEDS: Dextrose 50% Syringe 50 ml 25 GM/50 ML SYRINGE IV PUSH ONE (09:22)
[2024-09-20] MEDS: methylPREDNISolone SOD SUCC 40 mg/ml 1 ml VIAL IV SCH (09:26)
[2024-09-20] MEDS: CALCIUM GLUCONATE 1GM/50ML NS 1 GM/50 ML BAG IV ONE (09:31)
[2024-09-20] MEDS: LORazepam 2 mg VIAL 1 ml IV PUSH ONE (16:14)
[2024-09-20] MEDS: Morphine 10 MG/ML VIAL (1 ml) IV ONE (16:14)
[2024-09-20] MEDS ORDERED: Lorazepam PYXIS KEY PRN (16:14)
[2024-09-20] MEDS ORDERED: Ondansetron 4 mg VIAL 2 MG/ML 2 ml VIAL IV PRN (16:24)
[2024-09-20] MEDS: Morphine 10 MG/ML VIAL (1 ml) ONE (16:31)
[2024-09-20] MEDS: LORazepam 2 mg VIAL 1 ml ONE (16:31)
[2024-09-20] MEDS: Morphine 4 MG/ML VIAL (1 ml) ONE (17:35)
[2024-09-21] MEDS: Atropine 1% (ORAL/SL) 15 ML BTL SL PRN (13:10)
[2024-09-21 14:03] VITALS: BP 108/64
== END 2024-09-21 17:14 | disposition expired | DRG 208 ==
LOC: ICU 17:24
PROVIDERS: ADMIT Student in an Organized Health Care Education/Training Program; ATTEND Student in an Organized Health Care Education/Training Program